=== PATIENT | male | born 1980 | race Caucasian/White ===

== ENCOUNTER 2019-05-02 11:46 | Emergency (ER) | payer OTHER, SELFPAY ==
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
[2019-05-02 13:01] VITALS: BP 133/77; PULSE 107; RESP 20; TEMP 36.6; O2SAT 98
[2019-05-02] MEDS: IBUPROFEN 400 MG TABLET 800 MG PO (13:30)
== END 2019-05-02 13:40 | disposition home or self-care (01) ==
PROVIDERS: Emergency Provider Nurse Practitioner Family
DX: G43.901 Migraine, unspecified, not intractable, with status migrainosus (principal)
CPT/HCPCS: 87804; 99213; A9270; G0463

== ENCOUNTER 2023-10-26 14:14 | Emergency (ER) | payer MEDICAID, SELFPAY ==
--- NOTE | ~2023-10-26 | CT_ITS ---
EXAMINATION: CT abdomen pelvis w con DATE: 10/26/2023 18:16 INDICATION: rlq pain TECHNIQUE: Computed tomography (CT) of the abdomen and pelvis was performed with 100 mL Omnipaque-350 intravenous contrast. Automated exposure control and iterative reconstruction technique were employe d. The dose-length product was 494.68 mGy-cm. COMPARISON: None. FINDINGS: Lower thorax: Dependent atelectasis. Right lower lobe calcified granuloma. Liver: Normal. Biliary/Gallbladder: Cholelithiasis. No inflammatory changes. No bile duct dilation. Pancreas: No mass or duct dilation. Spleen: Normal. Adrenals:No mass. Kidneys: No suspicious mass, obstructing stone, or hydronephrosis. Punctate right midpole nonobstruct ing calcifications. Bilateral subcentimeter hypodensities, too small to characterize but likely repre sent cysts. Cortical scarring on the right. GI tract: No small or large bowel dilation. Normal appendix. Mesentery/Peritoneum: No ascites, mass, or free air. IVC filter. Retroperitoneum: No mass. Pelvis: Partially distended urinary bladder with mild wall thickening and mild stranding. Enlarged ri ght common femoral lymph node. Soft Tissues: Soft tissues and body wall unremarkable. Bones: No acute osseous finding. IMPRESSION: Possible cystitis, correlate with urinalysis. Right common femoral lymphadenopathy. Otherwise, no acute abdominopelvic process detected. Reviewed, dictated and finalized at location K.
[2023-10-26 14:17] VITALS: BP 131/90; PULSE 91; RESP 16; TEMP 36.4; O2SAT 100
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
[2023-10-26 16:28] LABS: Basophils Absolute Auto 0.1 K/mm3 (0.0-0.1); Basophils Percent Auto 0.5 % (0.2-1.2); Eosinophils Absolute Auto 0.1 K/mm3 (0-0.3); Eosinophils Percent Auto 1.1 % (0-4.4); Hemoglobin 16.1 g/dL (14.0-18.0); Immature Granulocyte Absolute 0.05 K/mm3 (0.00-0.031); Immature Granulocyte Percent A 0.5 % (0-0.5); Lymphocytes Absolute Auto 2.43 K/mm3 (0.9-3.2); Lymphocytes Percent Auto 25.5 % (18.3-44.2); Mean Corpuscular HGB Conc 32.2 g/dl (32-36); Mean Corpuscular Hemoglobin 28.9 pg (26-34); Mean Corpuscular Volume 89.8 fl (80-100); Mean Platelet Volume 9.8 fl (7.4-10.4); Monocytes Absolute Auto 0.9 K/mm3 (0.1-0.6); Monocytes Percent Auto 9.9 % (2.6-8.5); Neutrophils Percent Auto 62.5 % (45.5-73.1); Platelet Count Result 268 k/mm3 (150-375); Red Blood Count 5.57 M/mm3 (4.6-6.20); Red Cell Distribution Width 14.2 % (11.5-14.5); White Blood Count 9.5 K/mm3 (4.5-10.0)
[2023-10-26 16:29] LABS: Alanine Aminotransferase 149 U/L (6-50); Albumin Level 4.6 g/dL (3.5-5.1); Alkaline Phosphatase 99 U/L (38-126); Anion Gap 7 mmol/L (4-12); Aspartate Amino Transferase 62 U/L (17-59); Bilirubin,Total 0.6 mg/dL (0.2-1.3); Blood Urea Nitrogen 14 mg/dL (9-20); Calcium 9.1 mg/dL (8.4-10.2); Carbon Dioxide 31 mmol/L (22-30); Chloride 102 mmol/L (98-107); Estimated CRCL calculation 80 ml/min; Estimated Glomerular Filt Rate > 60; Glucose 104 mg/dL (65-110); Lipase 138 U/L (23-300); Potassium 4.2 mmol/L (3.4-5.0); Sodium 140 mmol/L (137-145)
--- NOTE | 2023-10-26 16:43 | PC.NURSE ---
Pt to cafeteria to get food.
[2023-10-26 17:44] VITALS: O2SAT 96
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
[2023-10-26 17:55] VITALS: BP 124/78; PULSE 72; RESP 16; O2SAT 97
[2023-10-26 18:15] LABS: Appearance Urine Clear (Clear); Bilirubin Urine Negative (Negative); Blood Urine Negative (Negative); Color Urine Yellow (Yellow); Glucose Urine UA Negative (Negative); Ketones Urine Negative (Negative); Leukocyte Esterase Ur Negative LEU/UL (Negative); Nitrate Urine Negative (Negative); Protein Urine Negative (Negative); Specific Grav Ur 1.017 (1.001-1.035)
[2023-10-26 18:17] LABS: Add Urine Microscopic? NO
== END 2023-10-26 19:00 | disposition home or self-care (01) ==
PROVIDERS: Physician Assistant; Emergency Provider Emergency Medicine
DX: R10.31 Right lower quadrant pain (principal)
CPT/HCPCS: 36415; 74177; 80053; 81003; 83690; 85025; 99284; Q9967